=== PATIENT | male | born 1970 | race Caucasian/White ===

== ENCOUNTER 2017-02-05 22:43 | Observation (INO) | payer OTHER ==
[~2017-02-05] VITALS: Ht 167.6 cm; Wt 66.8 kg
--- NOTE | 2017-02-06 07:03 | EKG ---
[facility] [address] [facility] [place], [place] [address] Signed Normal sinus rhythm Nonspecific ST and T wave abnormality Abnormal ECG No previous ECGs available Confirmed by NIKKI HOGAN MD ([id number] on 02/06/2017 7:03:39 AM Electronically Signed By: NIKKI HOGAN MD 02/06/17 0703 PATIENT NAME: PAULO NESS JOHN Electrocardiogram DATE OF : 74 PHYSICIAN: NIKKI HOGAN MD REPORT #: [id number] REPORT IS CONFIDENTIAL AND NOT TO BE RELEASED WITHOUT AUTHORIZATION
--- NOTE | 2017-02-06 16:37 | EKG ---
[facility] [address] [facility] [place], [place] [address] Signed Normal sinus rhythm Normal ECG When compared with ECG of 05-FEB-2017 23:06, Nonspecific T wave abnormality no longer evident in Anterior leads Confirmed by NIKKI HOGAN MD ([id number] on 02/06/2017 4:37:23 PM Electronically Signed By: NIKKI HOGAN MD 02/06/17 1637 PATIENT NAME: PAULO NESS Electrocardiogram DATE OF : 74 PHYSICIAN: NIKKI HOGAN MD REPORT #: [id number] REPORT IS CONFIDENTIAL AND NOT TO BE RELEASED WITHOUT AUTHORIZATION
== END 2017-02-06 12:15 | disposition home or self-care (01) ==
LOC: ED 22:43 → MS 22:45
PROVIDERS: ADMIT Internal Medicine
DX: R41.82 Altered mental status, unspecified (principal); F41.9 Anxiety disorder, unspecified; H53.8 Other visual disturbances; R51 Headache; R20.0 Anesthesia of skin; R07.9 Chest pain, unspecified; F43.9 Reaction to severe stress, unspecified
CPT/HCPCS: 51701; 70450; 70553; 80053; 81001; 85025; 85610; 85730; 86617; 93005; 93010; 96374; 96376; 99285; A9579; G0378; J2060; J7030

== ENCOUNTER 2019-06-27 17:39 | Emergency (ER) | payer SELFPAY ==
[~2019-06-27] VITALS: Ht 167.6 cm; Wt 66.7 kg
[2019-06-27] MEDS ORDERED: TAMIFLU75 MG PO (18:49)
== END 2019-06-27 19:09 | disposition home or self-care (01) ==
LOC: ED 17:39
DX: J10.1 Influenza due to other identified influenza virus with other respiratory manifestations (principal)
CPT/HCPCS: 71046; 87502; 99283-25

== ENCOUNTER 2020-07-11 16:56 | Emergency (ER) | payer SELFPAY ==
[~2020-07-11] VITALS: Ht 167.6 cm; Wt 66.7 kg
[~2020-07-11 16:56] MED LIST: TAMIFLU75 MG PO
== END 2020-07-11 18:53 | disposition home or self-care (01) ==
LOC: ED 16:56
DX: U07.1 COVID-19 (principal)
CPT/HCPCS: 99284; A9270; C9803; U0003